=== PATIENT | female | born 1940 | race Two or more races ===

== ENCOUNTER → 2020-02-28 | Outpatient (CLI) | payer OTHER | END | disposition home or self-care (01) | LOC: SONOGRAMA 07:59 | PROVIDERS: ATTEND Pathology Anatomic Pathology & Clinical Pathology | DX: D34 Benign neoplasm of thyroid gland (principal); E04.8 Other specified nontoxic goiter ==

== ENCOUNTER 2024-03-31 06:00 | Day surgery (SDC) | payer OTHER ==
[2024-03-24 13:23] VITALS: BP 130/65
[~2024-03-31] VITALS: Ht 157.5 cm; Wt 69.4 kg
[~2024-03-31 06:00] MED LIST: GRALISE600 MG PO; NORVASC2.5 MG PO; PLAVIX75 MG PO; TOPROL XL25 M1 PO; ZETIA10 MG PO; ZOCOR40 MG PO; [UNRECOGNIZED DRUG - OTHER] PO
[2024-03-31] MEDS ORDERED: CEFAZOLIN SODIUM 1,000 MG VIAL ONE (10:14)
[2024-03-31] MEDS ORDERED: LIDOCAINE HCL 1% 10ML VIAL IJ ONE (11:15)
[2024-03-31] MEDS ORDERED: BUPIVACAINE HCL/PF 0.25% 30ML VIAL InF ONE (11:15)
[2024-03-31] MEDS ORDERED: BACITRACIN 28.35 GM OINT.TUBE TOP ONE (11:15)
[2024-03-31] MEDS ORDERED: MORPHINE SULFATE 2 MG/ML CARTRIDGE IV ONE (13:00)
== END 2024-03-31 14:20 | disposition home or self-care (01) ==
LOC: CIR.AMB 06:00
PROVIDERS: ATTEND Surgery Surgery of the Hand
DX: M65.842 Other synovitis and tenosynovitis, left hand (principal); Z88.2 Allergy status to sulfonamides; I10 Essential (primary) hypertension; E11.9 Type 2 diabetes mellitus without complications